=== PATIENT | male | born 1975 | race Caucasian/White ===

== ENCOUNTER 2023-08-05 12:50 | Day surgery (SDC) | payer OTHER, SELFPAY ==
[2023-08-05] VITALS (7 sets, daily range): BP systolic 113–145; BP diastolic 57–72; PULSE 49–62; RESP 9–20; TEMP 36.7–37; O2SAT 97–100; BMI 24.2
[2023-08-05] MEDS: LACTATED RINGERS 1,000 ML 42 ML IV (14:18)
--- NOTE | 2023-08-05 14:46 | PM.HP.1 ---
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 Currently undergoing chemotherapy and has developed severe mucositis with odynophagia. Prior abdominal surgery includes inguinal hernia repair bilaterally. [facility] Medical History Unspecified rotator cuff tear or rupture of left shoulder, not specified as traumatic Unspecified rotator cuff tear or rupture of left shoulder, not specified as traumatic Mixed hyperlipidemia Major depressive disorder with single episode Generalized anxiety disorder Acute dehydration Hemoptysis Pneumonia of left lower lobe due to infectious organism Adverse effect of chemotherapy Hematemesis without nausea Malignant neoplasm of pharynx, unspecified Throat cancer Social History household members: spouse Smoking Status: Former smoker alcohol intake: never Meds Home Medications and Allergies Home Medications Medication Instructions Recorded Confirmed Type albuterol 90 mcg/actuation aerosol 90 mcg inhalation PER PKG DIR 08/05/23 08/05/23 History inhaler dabigatran etexilate 150 mg capsule 150 mg PO BID 08/05/23 08/05/23 History fluconazole 200 mg tablet 200 mg PO DAILY 08/05/23 08/05/23 History lidocaine HCl 2 % mucosal solution See Rx Instructions .Route .COMPLEX 08/05/23 08/05/23 History (Lidocaine Viscous) lorazepam 1 mg tablet 1 mg PO 3XD 08/05/23 08/05/23 History ondansetron 4 mg disintegrating 4 mg PO Q8H PRN Nausea 08/05/23 08/05/23 History tablet oxycodone 5 mg tablet 5 mg PO 3XD PRN Nausea And Vomiting 08/05/23 08/05/23 History Allergies Allergy/AdvReac Type Severity Reaction Status Date / Time olanzapine Allergy Confusion Verified 08/04/23 13:12 Exam Vital Signs (past 8 hours): - 08/05/23 13:53 Temperature 98.1 F Pulse Rate 55 L Respiratory Rate 18 Blood Pressure 113/68 Pulse Oximetry 100 Oxygen Delivery Method Room Air Oxygen Delivery Method Room Air Narrative Exam Narrative: GENERAL: A well nourished, well developed adult, resting comfortably, in no acute distress. HEENT: Normocephalic, atraumatic. No scleral icterus CHEST: Rising symmetrically. No audible wheezes CARDIOVASCULAR: Warm and well perfused. Regular rate ABDOMEN: Soft, non-tender, non-distended EXTREMITIES: Normal tone and without edema. NEUROLOGIC: Moving all extremities spontaneously. No gross motor deficits. Assessment & Plan Assessment and plan (1) Odynophagia: Status: Acute Assessment & Plan narrative: 48-year-old male with tonsillar cancer undergoing chemotherapy with severe odynophagia leading to protein malnutrition. Percutaneous endoscopic gastrostomy tube placement for supplemental nutrition. Overview of the operation was discussed. Operative risks including but not limited to infection, hemorrhage, gastric leak were discussed. Questions have been answered, he is in agreement with this plan. Provides his written and verbal consent to proceed.
--- NOTE | 2023-08-05 15:13 | SUR.OPER ---
Supine on padded OR stretcher, head on pillow, arms at side at <90 degrees abduction, legs uncrossed, ,
--- NOTE | 2023-08-05 15:31 | PM.OP.1 ---
Operative Date/Time/Diagnoses Date of procedure: 08/05/23 Time of procedure: 15:31 Pre-op diagnosis: Tonsillar cancer Post-op diagnosis: same Procedure & Clinicians Procedure: Percutaneous endoscopic gastrostomy tube placement Same procedure as scheduled: Yes Indications: 48-year-old man with tonsillar cancer who has developed odynophagia here for PEG tube placement Surgeon: Arnav Rosario Yes if Unassisted: Yes Anesthesia Type: General Operative Notes Findings: Tube within the stomach snug against the abdominal wall but rotates freely Estimated Blood Loss (mL): 5 Procedure in detail: Patient was brought to the operating room placed supine on the table. General anesthesia was induced he was intubated with an endotracheal tube. Use then prepped and draped in sterile fashion time-out was performed. The endoscope was inserted into the mouth advanced into the esophagus and then into the stomach. The position of the body of the stomach was observed with the scope. Local anesthetic was used to anesthetize the skin and then a small incision was made in the left upper quadrant and the needle was placed through the abdominal wall and into the stomach its point of entry directly visualized. The guidewire was then advanced through the catheter. The grasping wire was advanced through the endoscope and then the guidewire was grasped. The PEG tube was then attached to the wire which was then withdrawn bringing the tube into the stomach. The endoscope was then reinserted into the mouth and the stomach was examined. There was hemostasis and the bumper was placed such that the tube was snug against the abdominal wall but it freely rotated. The tube was then dressed in the typical fashion patient was extubated and transferred to recovery in stable condition. Complications: none Post-operative Condition: stable Disposition: same day surgery
[2023-08-05] MEDS: OXYCODONE IR 5 MG TABLET PO ×2 (15:52→16:22)
[2023-08-05] MEDS: ONDANSETRON 4 MG/2 ML INJ IV (16:16)
--- NOTE | 2023-08-05 17:23 | CM.DPNOTE ---
DCP Note NONDESTRUCTIVE TESTER received call from [facility] about patient. [facility] has been following patient and reported they would need new dietary orders, which provider is following patient, and other d/c information. NONDESTRUCTIVE TESTER reported that patient was not on the floor during time of conversation and that a inventory planner would be in contact with them tomorrow to coordinate discharge needs for patient. Jaqueline Best, NONDESTRUCTIVE TESTER
== END 2023-08-05 16:30 | disposition home or self-care (01) ==
PROVIDERS: PCP Family Medicine; Referring Provider Surgery; Visit Provider Surgery
PROC: 0DH63UZ Insertion of Feeding Device into Stomach, Percutaneous Approach (ICD-10-PCS; CPT 43246; principal; 2023-08-05 14:15)
DX: C76.0 Malignant neoplasm of head, face and neck (principal)
CPT/HCPCS: 43246; J0330; J1100; J2250; J2405; J3010